=== PATIENT | male | born 1950 | race Caucasian/White ===

== ENCOUNTER 2016-09-02 08:54 | Emergency (ER) | payer BC ==
[~2016-09-02] VITALS: Ht 177.8 cm; Wt 74.7 kg
[2016-09-02 08:58] VITALS: TEMP 36.7; Ht 177.8 cm; Wt 74.7 kg
[2016-09-02] MEDS ORDERED: PROPARACAINE HCL 0.5% OP SOLN 15 ML BTL OP STA (09:30)
[2016-09-02] MEDS ORDERED: DIPHTHERIA/TETANUS/PERTUSSIS 0.5 ML SYR/VIAL IM. ONE (09:30)
--- NOTE | 2016-09-02 10:09 | EMERGENCY ROOM VISIT NOTE ---
ED Visit Note First contact with patient: 09:16 CHIEF COMPLAINT: Eye injury HISTORY OF PRESENT ILLNESS: This patient sustained an eye injury one week ago when he was grinding metal and got a piece of metal in his eye. The patient did not seek treatment until this morning because the pain worsened today. He saw urgent care and was referred to the emergency department for further evaluation and management. The patient reports pain in the right eye. He denies any significant decreased vision. Since then there has been a constant moderate pain and irritation, redness and tearing in the eye. There is a mild blurring of vision at times and light bothers the eye. The vision has not been decreased over all. REVIEW OF SYSTEMS: Head: No headache, injury or neck pain. Neck: No pain, stiffness, or swelling. Neurological: No headache, new changes in mental status, vertigo, focal weakness, numbness. PMH: The patient is healthy; there is no significant medical or surgical history. SOCIAL HISTORY: Patient lives at home. PHYSICAL EXAM: Vital Signs: Reviewed Nurse's notes. GENERAL: This is a healthy- appearing person who is uncomfortable from the eye problem. The pupils are round, equal, and react to light. EOMs are full. There is discharge of clear tears from the injured eye which is injected. There is no foreign body visible under the eyelid even after lid eversion. There is a foreign body noted in the right cornea with rust string. There appears to be epithelialization over the foreign body. There is no hyphema or hypopyon. Floor seen uptake was observed in the area of the foreign body. EMERGENCY DEPARTMENT COURSE: The patient was seen and examined. Previous visits were reviewed. He was given a tetanus shot. The patient has a corneal foreign body on the right. He suspects it is metal. There appears to be a rust ring as well. The patient did not seek treatment for one week. The cornea appears to have begun to heal over top of the foreign body. I was unable to remove the foreign body because of this. I discussed the case with Dr. Borrero. He states that he can see the patient at his office at 11 AM. He believes he has samples for antibiotic drops. I offered to give the patient antibiotic drops from the emergency department but it could be quite expensive. He was advised to return to the ER for a take-home pack of antibiotic drops if he does not get them from ophthalmology. The patient should return sooner with any worsening symptoms. The case was discussed with Dr. Plascencia who agrees with the assessment and plan. Current/Historical Medications Scheduled Glipizide (Glucotrol), 10 MG PO BID Insulin Glargine (Basaglar Kwikpen), 10 UNITS SQ DAILY Lisinopril (Zestril), 1 TAB PO DAILY Metoprolol Succ (Toprol Xl) (Toprol-Xl), 25 MG PO DAILY Simvastatin (Simvastatin), 1 TAB PO QPM Sitagliptin Phosphate (Januvia), 100 MG PO DAILY Venlafaxine Hcl (Venlafaxine Extended Rel), 75 MG PO DAILY Allergies Coded Allergies: No Known Allergies (Verified , unknown, 09/02/16) Vital Signs Date Time Temp Pulse Resp B/P Pulse Ox O2 Delivery O2 Flow Rate FiO2 09/02/16 10:25 61 16 104/68 100 09/02/16 08:58 36.7 72 18 103/65 98 Room Air Medications Administered Medications (Trade) Dose Ordered Sig/[place] Route Start Time Stop Time Status Last Admin Dose Admin Diphtheria/ Pertussis/Tetanus Vacc (Adacel Inj) 0.5 ml ONCE ONCE IM. 09/02/16 09:30 09/02/16 09:31 DC 09/02/16 09:38 0.5 ML Proparacaine HCl (Alcaine 0.5% Oph Soln) 2 drops NOW STAT OP 09/02/16 09:30 09/02/16 09:31 DC 09/02/16 09:39 2 DROPS Departure Information Impression Primary Impression: Corneal rust ring Additional Impression: Corneal foreign body Dispostion Home / Self-Care Condition GOOD Referrals Holden Mccauley M.D. (PCP) Pollo Borrero MD Patient Instructions My [facility] Additional Instructions Go to Dr. Borrero's office at 11am. He will meet you outside the office door Return with worsening symptoms Problem Qualifiers
[2016-09-02] MEDS ORDERED: LISI-789 PO (10:23)
[2016-09-02] MEDS ORDERED: ZCR80 PO (10:23)
[2016-09-02] MEDS ORDERED: VENL75CA73 PO (10:23)
[2016-09-02] MEDS ORDERED: GLIP10TA3 PO (10:23)
[2016-09-02] MEDS ORDERED: SITA100T3 PO (10:23)
[2016-09-02] MEDS ORDERED: INSU100I23 SQ (10:23)
[2016-09-02] MEDS ORDERED: METO25TA3 PO (10:23)
[2016-09-02 10:25] VITALS: BP 104/68; PULSE 61; O2SAT 100
== END 2016-09-02 10:25 | disposition home or self-care (01) ==
LOC: C.EDB 08:55
DX: T15.01XA Foreign body in cornea, right eye, initial encounter (principal); Z23 Encounter for immunization; Z79.4 Long term (current) use of insulin; Z79.899 Other long term (current) drug therapy; W45.8XXA Other foreign body or object entering through skin, initial encounter